=== PATIENT | female | born 1965 | race Caucasian/White ===

== ENCOUNTER 2025-03-09 15:59 | Emergency (ER) | payer MEDICARE, SELFPAY ==
[2025-03-09 16:03] VITALS: BP 142/88; PULSE 80; RESP 18; TEMP 36.9; O2SAT 97; BMI 25.9
--- OUTSIDE RECORDS SUMMARY | 2025-03-09 16:16 | XMS_ITS | Data Portability ---
Author Organization [facility] Address [address] [place] [address] Assessment No assessment recorded. Plan of Treatment Reminders Order Date Submit Date Provider Last Modified By Organization Details Last Modified Time Details Appointments None recorded. Lab lipid panel, serum 2022 023 [facility] (Laboratory), [address] [place], [address], 3 13:09:10 CMP, serum or plasma 2022 023 [email or web address] [facility] (Laboratory), [address] [place], [address], 3 12:00:51 CBC w/ auto diff 2022 023 [email or web address] 0 [facility] (Laboratory), [address] [place], [address], 3 12:00:15 TSH, serum or plasma 2022 023 [email or web address] 0 [facility] (Laboratory), [address] [place], [address], 3 11:59:53 vitamin D, 25-hydroxy, total, serum 2022 023 [email or web address] [facility] (Laboratory), [address] [place], [address], 3 08:19:32 lipid panel, serum 2022 023 [email or web address] [facility] (Laboratory), [address] [place], [address], 3 08:19:32 Referral gastroenter ology surgery referral - colonoscopy screening 2022 023 [email or web address] 0 Alex Thompson MD, [address], [place], [address], 3 09:54:09 Procedures None recorded. Surgeries None recorded. Imaging XR, finger(s) - right middle finger 2022 023 [email or web address] [facility] Centralized Scheduling, [address] [place], [address], 3 09:32:34 DEXA 2022 023 [facility] Centralized Scheduling, [address] [place], [address], 3 08:07:06 MAMMO, screening, bilateral 2022 023 COSTA [facility] Centralized Scheduling, [address] [place], [address], 3 09:47:32 Medication Orders None recorded. Patient TargetsNo targets recorded. Patient InstructionsNo instructions recorded. Reason for Referral Gastroenterology Surgery Ref erral for Adult health examination colonoscopy screening Referring Physician: Jay Daniel, Family Medicine, Encounter Date: 07/30/2022 Results Created Date Observation Date Name Description Value Unit Range Abnormal Flag Note LastModifiedBy Organization Detail LastModifiedTime 07/31/1907/30/2022 CBC AUTO W DIFF WBC 4.4 10 4.5-11 .5 low Not Available [facility] (Lab Registration) [address] [place], [address], 07/30/2022 17:09:51 07/31/19 23 07/30/2022 CBC AUTO W DIFF RBC 4.51 10 4.25-5 .57 Not Available [facility] (Lab Registration) [address] [place], [address], 07/30/2022 17:09:51 07/31/19 23 07/30/2022 CBC AUTO W DIFF HGB 13.3 g/dL 12.0-1 5.7 Not Available [facility] (Lab Registration) [address] [place], [address], 07/30/2022 17:09:51 07/31/19 23 07/30/2022 CBC AUTO W DIFF HCT 40.6 % 36.0-4 7.0 Not Available [facility] (Lab Registration) [address] [place], [address], 07/30/2022 17:09:51 07/31/19 23 07/30/2022 CBC AUTO W DIFF MCV 90.0 fL 80-95 Not Available [facility] (Lab Registration) [address] [place], [address], 07/30/2022 17:09:51 07/31/19 23 07/30/2022 CBC AUTO W DIFF MCH 29.5 pg 27.0-3 4.0 Not Available [facility] (Lab Registration) [address] [place], [address], 07/30/2022 17:09:51 07/31/19 23 07/30/2022 CBC AUTO W DIFF MCHC 32.8 g/dL 32.0-3 6.0 Not Available [facility] (Lab Registration) [address] [place], [address], 07/30/2022 17:09:51 07/31/19 23 07/30/2022 CBC AUTO W DIFF platelet count 295 10 150-45 0 Not Available [facility] (Lab Registration) [address] [place], [address], 07/30/2022 17:09:51 07/31/19 23 07/30/2022 CBC AUTO W DIFF RDW 12.3 % 12.3-1 5.1 Not Available [facility] (Lab Registration) [address] [place], [address], 07/30/2022 17:09:51 07/31/19 23 07/30/2022 CBC AUTO W DIFF MPV 11.3 fL 7.4-10 .4 high Not Available [facility] (Lab Registration) [address] [place], [address], 07/30/2022 17:09:51 07/31/19 23 07/30/2022 CBC AUTO W DIFF granulocyte% 54.1 % 40-75 Not Available [facility] (Lab Registration) [address] [place], [address], 07/30/2022 17:09:51 07/31/19 23 07/30/2022 CBC AUTO W DIFF lymphocyte% 34.5 % 15-57 Not Available [facility] (Lab Registration) [address] [place], [address], 07/30/2022 17:09:51 07/31/19 23 07/30/2022 CBC AUTO W DIFF monocyte% 9.5 % 4.0-12 .0 Not Available [facility] (Lab Registration) [address] [place], [address], 07/30/2022 17:09:51 07/31/19 23 07/30/2022 CBC AUTO W DIFF eosinophil% 1.4 % 0.0-4. 0 Not Available [facility] (Lab Registration) [address] [place], [address], 07/30/2022 17:09:51 07/31/19 23 07/30/2022 CBC AUTO W DIFF basophil% 0.5 % 0.0-1. 0 Not Available [facility] (Lab Registration) [address] [place], [address], 07/30/2022 17:09:51 07/31/19 23 07/30/2022 CBC AUTO W DIFF immature granulocytes % 0.0 % 0.0-0. 8 Not Available [facility] (Lab Registration) [address] [place], [address], 07/30/2022 17:09:51 07/31/19 23 07/30/2022 CBC AUTO W DIFF granulocyte# 2.39 10 Not Available [facility] (Lab Registration) [address] [place], [address], 07/30/2022 17:09:51 07/31/19 23 07/30/2022 CBC AUTO W DIFF lymphocyte# 1.52 10 Not Available [facility] (Lab Registration) [address] [place], [address], 07/30/2022 17:09:51 07/31/19 23 07/30/2022 CBC AUTO W DIFF monocyte# 0.42 10 Not Available [facility] (Lab Registration) [address] [place], [address], 07/30/2022 17:09:51 07/31/19 23 07/30/2022 CBC AUTO W DIFF eosinophil# 0.06 10 Not Available [facility] (Lab Registration) [address] [place], [address], 07/30/2022 17:09:51 07/31/19 23 07/30/2022 CBC AUTO W DIFF basophil# 0.02 10 Not Available [facility] (Lab Registration) [address] [place], [address], 07/30/2022 17:09:51 07/31/19 23 07/30/2022 CBC AUTO W DIFF immature granulocytes # 0.00 10 Not Available [facility] (Lab Registration) [address] [place], [address], 07/30/2022 17:09:51 07/31/19 23 07/30/2022 CBC AUTO W DIFF manual differential NO Not Available [facility] (Lab Registration) [address] [place], [address], 07/30/2022 17:09:51 07/31/19 23 07/30/2022 CBC AUTO W DIFF note Unles s other cuevas noted testi ng perfo rmed at: [facility] [address] [place] [address] [phone] Anand carlos MD CLIA: [id number] Not Available [facility] (Lab Registration) [address] [place], [address], 07/30/2022 17:09:51 07/31/19 23 07/30/2022 VITAM IN D TOTAL (D2+D 3) vitamin D25 (D2+D3) 20.2 NG/mL 30-100 low Not Available [facility] (Lab Registration) [address] [place], [address], 07/30/2022 17:34:32 07/31/19 23 07/30/2022 VITAM IN D TOTAL (D2+D 3) note Unles s other cuevas noted testi ng perfo rmed at: [facility] [address] [place] [address] [phone] Anand carlos MD CLIA: [id number] Not Available [facility] (Lab Registration) [address] [place], [address], 07/30/2022 17:34:32 07/31/19 23 07/30/2022 COMP METAB OLIC PANEL sodium 141 mmol/ L 136-14 5 Not Available [facility] (Lab Registration) [address] [place], [address], 07/30/2022 17:34:33 07/31/19 23 07/30/2022 COMP METAB OLIC PANEL potassium 4.2 mmol/ L 3.5-5. 1 Not Available [facility] (Lab Registration) [address] [place], [address], 07/30/2022 17:34:33 07/31/19 23 07/30/2022 COMP METAB OLIC PANEL chloride 104 mmol/ L 98-107 Not Available [facility] (Lab Registration) [address] [place], [address], 07/30/2022 17:34:33 07/31/19 23 07/30/2022 COMP METAB OLIC PANEL carbon dioxide 28 mmol/ L 21-32 Not Available [facility] (Lab Registration) [address] [place], [address], 07/30/2022 17:34:33 07/31/19 23 07/30/2022 COMP METAB OLIC PANEL anion gap 9.0 Not Available [facility] (Lab Registration) [address] [place], [address], 07/30/2022 17:34:33 07/31/19 23 07/30/2022 COMP METAB OLIC PANEL glucose 107 mg/dL 70-110 Not Available [facility] (Lab Registration) [address] [place], [address], 07/30/2022 17:34:33 07/31/19 23 07/30/2022 COMP METAB OLIC PANEL blood urea nitrogen 9 mg/dL 7-18 Not Available [facility] (Lab Registration) [address] [place], [address], 07/30/2022 17:34:33 07/31/19 23 07/30/2022 COMP METAB OLIC PANEL creatinine 0.8 mg/dL 0.6-1. 0 Not Available [facility] (Lab Registration) [address] [place], [address], 07/30/2022 17:34:33 07/31/19 23 07/30/2022 COMP METAB OLIC PANEL BUN/creatini ne ratio 11.3 ratio 9-21 Not Available [facility] (Lab Registration) [address] [place], [address], 07/30/2022 17:34:33 07/31/19 23 07/30/2022 COMP METAB OLIC PANEL estimated glom filtration rate 78 mL/mi n >60- Not Available [facility] (Lab Registration) [address] [place], [address], 07/30/2022 17:34:33 07/31/19 23 07/30/2022 COMP METAB OLIC PANEL total protein 7.9 g/dL 6.4-8. 2 Not Available [facility] (Lab Registration) [address] [place], [address], 07/30/2022 17:34:33 07/31/19 23 07/30/2022 COMP METAB OLIC PANEL albumin 4.4 g/dL 3.4-5. 0 Not Available [facility] (Lab Registration) [address] [place], [address], 07/30/2022 17:34:33 07/31/19 23 07/30/2022 COMP METAB OLIC PANEL calcium 9.3 mg/dL 8.5-10 .1 Not Available [facility] (Lab Registration) [address] [place], [address], 07/30/2022 17:34:33 07/31/19 23 07/30/2022 COMP METAB OLIC PANEL corrected calcium 9.0 mg/dL 8.5-10 .1 Not Available [facility] (Lab Registration) [address] [place], [address], 07/30/2022 17:34:33 07/31/19 23 07/30/2022 COMP METAB OLIC PANEL bilirubin total 0.3 mg/dL 0.4-1. 5 low Not Available [facility] (Lab Registration) [address] [place], [address], 07/30/2022 17:34:33 07/31/19 23 07/30/2022 COMP METAB OLIC PANEL AST (SGOT) 24 U/L 15-37 Not Available [facility] (Lab Registration) [address] [place], [address], 07/30/2022 17:34:33 07/31/19 23 07/30/2022 COMP METAB OLIC PANEL ALT (SGPT) 32 U/L 12-78 Not Available [facility] (Lab Registration) [address] [place], [address], 07/30/2022 17:34:33 07/31/19 23 07/30/2022 COMP METAB OLIC PANEL alk phosphatase 106 U/L 50-120 Not Available [facility] (Lab Registration) [address] [place], [address], 07/30/2022 17:34:33 07/31/19 23 07/30/2022 COMP METAB OLIC PANEL note Unles s other cuevas noted testi ng perfo rmed at: [facility] [address] [place] [address] [phone] Anand carlos MD CLIA: [id number] Not Available [facility] (Lab Registration) [address] [place], [address], 07/30/2022 17:34:33 07/31/19 23 07/30/2022 THYRO ID STIMU LATIN G HORMO NE thyroid stimulating hormone 1.54 mIU/m L 0.34-4 .80 Not Available [facility] (Lab Registration) [address] [place], [address], 07/30/2022 17:34:35 07/31/19 23 07/30/2022 THYRO ID STIMU LATIN G HORMO NE note Unles s other cuevas noted testi ng perfo rmed at: [facility] [address] [place] [address] [phone] Anand carlos MD CLIA: [id number] Not Available [facility] (Lab Registration) [address] [place], [address], 07/30/2022 17:34:35 10/27/19 23 10/26/2022 LIPID PANEL triglyceride 83 mg/dL 20-200 The Natio nal Evelyn stero l Educa tion Progr am (NCEP ) has set the follo wing guide lines for Fasti ng Trigl yceri curtis: STEVEN L: <150 mg/dL BORDE RLINE HIGH: 150 - 199 mg/dL HIGH: 200 - 499 mg/dL VERY HIGH: > or =500 mg/dL Not Available [facility] (Lab Registration) [address] [place], [address], 10/26/2022 13:09:09 10/27/1910/26/2022 LIPID PANEL cholesterol 271 mg/dL 0-200 high The Natio nal Evelyn stero l Educa tion Progr am (NCEP ) has set the follo wing guide lines for Fasti ng Evelyn stero l: KEANU ABLE: <200 mg/dL BORDE RLINE HIGH: 200 - 239 mg/dL HIGH: > or =240 mg/dL Not Available [facility] (Lab Registration) [address] [place], [address], 10/26/2022 13:09:09 10/27/1910/26/2022 LIPID PANEL HDL cholesterol 61 mg/dL 60- The Natio nal Evelyn stero l Educa tion Progr am (NCEP ) has set the follo wing guide lines for Fasti ng HDL Evelyn stero l: LOW HDL: <40 mg/dL STEVEN L: 40 - 60 mg/dL KEANU ABLE: >60 mg/dL Not Available [facility] (Lab Registration) [address] [place], [address], 10/26/2022 13:09:09 10/27/1910/26/2022 LIPID PANEL LDL calculated 193 mg/dL 100- The Natio nal Evelyn stero l Educa tion Progr am (NCEP ) has set the follo wing guide lines for Fasti ng LDL Evelyn stero l: OPTIM AL: < 100 mg/dL LOW RISK: 100 - 129 mg/dL BORDE RLINE HIGH: 130 - 159 mg/dL HIGH: 160 - 189 mg/dL VERY HIGH: > or = 190 mg/dL Not Available [facility] (Lab Registration) [address] [place], [address], 10/26/2022 13:09:09 10/27/19 23 10/26/2022 LIPID PANEL chol/HDL ratio 4 ratio -5 Not Available [facility] (Lab Registration) [address] [place], [address], 10/26/2022 13:09:09 10/27/19 23 10/26/2022 LIPID PANEL note Unles s other cuevas noted testi ng perfo rmed at: [facility] [address] [place] [address] [phone] Anand carlos MD CLIA: [id number] Not Available [facility] (Lab Registration) [address] [place], [address], 10/26/2022 13:09:09 07/31/19 23 07/30/2022 XR, finge r(s) [facility] [place] [address] Phone: Fax: Name: NIKHIL BLANCO Exam Date: 023 : 9[birth year] Age 57 Gender : F Access ion: [id number] Physic arlyn: JAY DANIEL Facili ty: [facility] Facili ty HSV: Outpat ient Exam: FINGER (S) 3 VIEWS RT Right finger s THREE VIEW HISTOR Y: Pain and swelli ng FINDIN GS: Three views show no eviden ce of an acute, displa jayesh fractu re or disloc ation of the visual ized bony karol ecture . There are mild degene rative change s. Probab le enthes ophyte over the dorsal aspect of the third DIP. Soft tissue swelli ng is noted. Consid er furthe r evalua tion with MRI. IMPRES DIEGO: Probab le enthes ophyte over the dorsal aspect of the third DIP. Soft tissue swelli ng is noted. Consid er furthe r evalua tion with MRI. Dictat ed By: ALEX YU Transc ribed By: ALEX YU Transc ribed On: 023 11:55 AM Electr onical ly signed by: ALEX YU Thank you for referr ing NIKHIL BLANCO to [facility]. Legall y authen ticate d by POPE ALEX Hutchinson DO 07-30 11:55: 55 CC'ed Logic: Orderi ng Provid er: ÁNGEL THOMPSON CC Provid er: ÁNGEL THOMPSON Attend ing Provid er: ÁNGEL THOMPSON Referr ing Provid er: ÁNGEL THOMPSON Admitt ing Provid er: ÁNGEL THOMPSON [address] (Radiology) [address] [place], [address], 09/28/2022 09:32:34 09/29/19 23 04/28/2017 MAMMO , diagn ostic , digit al, bilat eral, w/ CAD No observ ation record ed. [address] Centralized Scheduling [address] [place], [address], 09/28/2022 09:46:43 09/29/19 23 04/05/2017 MAMMO , scree calos, bilat eral No observ ation record ed. [address] Centralized Scheduling [address] [place], [address], 09/28/2022 09:47:39 Result Notes Documentation Provider Name and Address Organization Details Recorded Time Xr, Finger(s) : [place] [address] [place] [address] Name: FRANCIS RAYMOND Exam Date: 07/30/2022 : 1965 Age 57 Gender: F Physician: JAY DANIEL Facility: [facility] Facility HSV: Outpatient Exam: FINGER(S) 3 VIEWS RT Right fingers THREE VIEW HISTORY: Pain and swelling FINDINGS: Three views show no evidence of an acute, displaced fracture or dislocation of the visualized bony architecture. There are mild degenerative changes. Probable enthesophyte over the dorsal aspect of the third DIP. Soft tissue swelling is noted. Consider further evaluation with MRI. IMPRESSION: Probable enthesophyte over the dorsal aspect of the third DIP. Soft tissue swelling is noted. Consider further evaluation with MRI. Dictated By: ALEX YU Transcribed By: ALEX YU Transcribed On: 07/30/2022 11:55 AM Electronically signed by: ALEX YU 07/30/2022 Thank you for referring RAYMOND BLANCO to [facility]. Legally authenticated by POPE ALEX Hutchinson DO 2022-07-30 11:55:55 CC'ed Logic: Ordering Provider: ÁNGEL THOMPSON CC Provider: ÁNGEL THOMSPON Attending Provider: ÁNGEL THOMPSON Referring Provider: ÁNGEL THOMPSON Admitting Provider: ÁNGEL Rothmantle [facility], [place] - [facility] - [place] & [place] 09/28/2022 09:32:34 Problems Name Problem SNOMED Code Status Onset Date Resolution Date Notes Provider Name and Address Organization Details Recorded Time Vitamin D deficiency 61807258 Active 2022 Jay Daniel MD [address] [place] [address], [phone], [place] [facility] [place] 3 10:42:51 Screening for malignant neoplasm of colon Active 2022 Jay Daniel MD [address] [place] [address], [address], [place] [facility] [place] 3 10:42:54 Screening for malignant neoplasm of breast Active 2022 Jay Daniel MD [address] [place] [address], [address], [place] [facility] [place] 3 10:42:55 Hyperlipidemia screening Active 2022 Jay Daniel MD [address] [place] [address], [address], [place] [facility] [place] 3 10:42:58 Problem Notes None recorded. Procedures Surgical History Date Name Laterality Status Provider Name and Address Organization Details Recorded Time 3 Medicare Annual Wellness Visit Health Risk Assessment completed Ramo CASTILLO [facility] & [place] 08/10/2022 15:21:30 Imaging Results None recorded. Procedure Notes None recorded. Medical Equipment None Reported. Allergies Allergen ID Allergen Name Allergen Category Reaction Reaction Severity Criticality Documentation Date Start Date Code Code System Note Provider Name and Address Organization Details Recorded Time 11354 Product containin g penicilli n (product) medicatio n Not available Not available Not available 09/28/2022 49871 8001 SNOMED Junie JONATHAN Quevedo [facility] & [place] 3 09:37:04 Vitals Date Recorded Body height Body mass index (BMI) Body weight Body temperature Oxygen saturation Oxygen saturation in Arterial blood by Pulse oximetry Heart rate Respiratory rate Systolic And Diastolic Provider Name and Address Organization Details Last Updated DateTime 3 153.67 cm 27.5 kg/m2 06726.7 1 g 98.6 [degF] 98 % 98 % 80 /min 18 /min 120/88 mm[Hg] Ramo CASTILLO [facility] & [place] 3 10:25:40 Date Recorded Body height Body mass index (BMI) Body weight Body temperature Oxygen saturation Oxygen saturation in Arterial blood by Pulse oximetry Heart rate Systolic And Diastolic Provider Name and Address Organization Details Last Updated DateTime 3 153.67 cm 27.3 kg/m2 46136.1 2 g 98.1 [degF] 99 % 99 % 67 /min 123/78 mm[Hg] Ramo CASTILLO [facility] & [place] 3 10:31:19 Social History None recorded. Functional Status None recorded. Mental Status None recorded. Family History Nothing Reported. Medical History No medical history recorded. Gynecological HistoryNo gynecological history recorded. Obstetrics History GPAL:G 0 P 0 0 0 0 Past Encounters Encounter ID Performer Location Encounter Start Date Encounter Closed Date Diagnosis/Indication Diagnosis SNOMED-CT Code Diagnosis ICD10 Code Diagnosis IMO Codes Diagnosis Note [id number] Jay Daniel MD [facility] [address] [phone] 07/30/2022 09:54:32 07/30/2022 11:08:56 Adult health examination 154261847 Z00.00 Physical exam. Recommende d screenings including blood work colonoscop y mammogram and DEXA scan Mallet fin fuad of right hand 8018519414 32951 M20.011 Mallet finger deformity of the right middle finger. This trauma occurred 2 months ago. I explained to the patient that I did not know that the problem could be fixed. We will x-ray the finger. Explain the etiology of being a torn ligament. [id number] Jay Daniel MD [facility] [address] [id number] 10/26/2022 10:09:11 10/26/2022 17:24:32 Vitamin D deficiency 59580275 E55.9 patient on vitamin-D tolerating well. Recommend continuing this. Screening for malignant neoplasm of colon 013833904 Z12.11 Patient has decline screening colonoscop y and Cologuard at this time. She will consider and discuss at next visit Screening for malignant neoplasm of breast 004442197 Z12.39 patient does not know when her last mammogram was. According to records she had 1 in 2016. I strongly recommend she have another mammogram. She will consider and let me know if she wants to proceed. Hyperlipid emia screening 074817917 Z13.220 Check lipid panel today. Mallet fin fuad of right hand 9301925326 40920 M20.011 X-ray shows scarring of the joint. Offered to refer to hand surgery. She will consider. Health Concerns Section Related Observation LastModified by Organization Detai ls LastModified Time None Recorded Concern Status LastModified by Organization Details LastModified Time None Recorded Advance Directives Directive None Recorded Payers Insurance Date Sequence Insurance Name Policy Number Policy Lane Covered Member ID Lane Member ID Guarantor Name 03/08/2025 [place] - [facility] (MEDICARE) Raymond Blanco [id number] Raymond Blanco 03/08/2025 [place] [employer] [facility] Raymond Blanco [id number] 29 Raymond Blanco 03/08/2025 1 [place] Raymond Blanco [id number] 29 Raymond Blanco Notes Date Note Type Note Provider Name and Address Organization Details Recorded Time 07/30/2022 text/html 49-year-old female here to become established and physical. Patient has a new patient. She was last seen in 2019.Patient has minimal health issues. She did have some trauma to her right middle finger 2 months ago and still has some swelling with deformity of her D IP joint. She denies any severe pain at this time.Patient does not recall her last mammogram or Pap smear she states it has been at least 4-5 years ago. She is not had any recent blood work.Patient has no specific complaints.No history of surgeries or hospitalizations. Jay Daniel MD [address] [place] [address], [phone], [facility] & [place] 08/12/2022 15:03:07 10/26/2022 text/html ROS as noted in the HPI 57-year-old female here for recheck.Patient's blood work showed vitamin-D deficiency. She did not get lipid panel done unsure why. Also patient did not get mammogram or colonoscopy done. We discussed at length. I recommend strongly she proceed with these tests. I also offered Cologuard screening.Patient' s x-ray of her right finger shows scarring of the joint. Discussed options for referral to hand surgery.Patient has no new complaints today Jay Daniel MD [address] [place] [address], [phone], [facility] & [place] 10/26/2022 11:03:27 OBGyn Episode No OBEpisode recorded.
--- OUTSIDE RECORDS SUMMARY | 2025-03-09 16:16 | XMS_ITS ---
Author Organization Unknown ENCOUNTERS Encounter Performer Location Date Diagnosis Diagnosis Status Emergency [facility] [place] [address] [place] [address] [id number] Pre Admit [place] [address] [place] [address] [id number] *Note: Encounters from your own facility or health system may be excluded. Allergies, Adverse Reactions, Alerts Allergen Type Severity Identification Date Penicillins drug allergy 0 [id number] Medications Name Date Quantity Days Supplied GPI Number
--- OUTSIDE RECORDS SUMMARY | 2025-03-09 16:16 | XMS_ITS | Clinical Summary ---
Author Organization [facility] Address [address] [place] [address] Care Team Providers Care Statistical Developer Name Role Phone Kelly Oliveira LEVAR Primary Care Provider Allergies Active Allergy Reactions Criticality Noted Date Comments Penicillins Unknown - Low Severity 01/19/2019 Medications methylPREDNISol one (MEDROL) 4 MG dose packIndications :Left otitis media with effusion,Acute non-recurrent maxillary sinusitis Take as directed on package instructions. 21 tablet 04/06/2023 Active Active Problems No known active problems Immunizations Immunization Administration Dates Next Due Fluzone >6mos 01/12/2017 TD Preservative Free (Tenivac) 07/10/2018 Family History Medical History Relation Name Comments No Known Problems Father No Known Problems Maternal Grandfather No Known Problems Maternal Grandmother Hypertension Mother No Known Problems Paternal Grandfather No Known Problems Paternal Grandmother Relation Name Status Comments Father Alive Maternal Grandfather Maternal Grandmother Mother Alive Paternal Grandfather Paternal Grandmother Social History Tobacco Use Types Packs/Day Years Used Date Smoking Tobacco: Former Cigarettes 1 9 1 991 - 2000 Smokeless Tobacco: Never Tobacco Cessation:Counseling Given: Not Answered PHQ-2 Answer Date Recorded Retired PHQ-9: Brief Depression Severity Measure Score 6 04/06/2023 Abuse Screen Answer Date Recorded Unsafe at Home or Work/School Not on file Feels Threatened by Someone? Not on file Does Anyone Keep You from Co ntacting Others or Doint Things Outside the Home? Not on file 04/06/2023 Physical Sign of Abuse Present Not on file 1 06/06/2022 Housing Stability Answer Date Recorded Current Living Arrangements Not on file 03/17 Potentially Unsafe Housing Conditions Not on love e 04/06/2023 Family and Community Support Answer Cl e Recorded Help with Day-to-Day Activities Not on file 04/06/2023 Lonely or Isolated Not on file 04/06/2023 Employment Answer Date Recorded Do you want help finding or keeping work or a frankie b? Not on file 04/06/2023 Disabilities Answer Date Recorded Concentrating, Remembering, or Making Decisions Difficulty Not on file 04/06/2023 Doing Errands Independently Difficulty Not on fi le 04/06/2023 Education Answer Date Recorded Help with school or training? Not on file Preferred Language Not on file 04/06/2023 PHQ-2 Answer Date Recorded Retired PHQ-9: Brief Depression Severity Measure Score 6 04/06/2023 Comments Unknown Sex and Gender Information Value Date Recorded Sex Assigned at Not on file Legal Sex Female 8:18 AM EST Gender Identity Not on file Sexual Orientation Not on file Last Filed Vital Signs Vital Sign Reading Time Taken Comments Blood Pressure 108/70 04/06/2023 12:37 PM EST Pulse 84 04/06/2023 12:37 PM EST Temperature 36.5 C (97.7 F) 04/06/2023 12:37 PM EST Respiratory Rate 22 04/06/2023 12:37 PM EST Oxygen Saturation 97% 04/06/2023 12:37 PM EST Inhaled Oxygen Concentration - - Weight 62.1 kg (137 lb) 04/06/2023 12:37 PM EST Height 154.9 cm (5' 1 ) 04/06/2023 12:37 PM EST Body Mass Index 25.89 04/06/2023 12:37 PM EST Plan of Treatment Health Maintenance Due Date Last Done Comments Annual Gynecologic Pelvic an d Breast Exam 1964 PAP SMEAR 1985 COLOGUARD 2009 COLON CANCER SCREENING 5 YEA R SIGMOIDOSCOPY 2009 COLONOSCOPY 2009 [address] CANCER SCREENING 2009 CT COLONOGRAPHY 2009 FECAL OCCULT BLOOD TEST 2009 FIT Testing (1 year) 2009 Pneumococcal Vaccine 50+ (1 of 1 - PCV) 2014 ZOSTER VACCINE (1 of 2) 2014 MAMMOGRAM 04/28/2019 04/28/2017, 04/05/2017 HEPATITIS C SCREENING 04/06/2023 ANNUAL WELLNESS VISIT 07/31/2023 07/30/2022, 017 INFLUENZA VACCINE 12/14/2024 01/12/2017, , 01/12/2017 TDAP/TD VACCINES (2 - Tdap) 07/10/2028 07/10/2018 Insurance MEDICARE A & B Care Teams Statistical Developer Relationship Specialty Start Date End Date Kelly Oliveira APRN [address] [place] [address] PCP - General Nurse Practitioner 04/06/23
--- NOTE | 2025-03-09 17:18 | ED_ITS ---
Discharge Plan Disposition Patient Disposition: Home, Self-Care Condition: Good Prescriptions Prescriptions: New triamcinolone acetonide 0.1 % cream 1 applic topical TID Qty: 30 0RF hydroxyzine pamoate 25 mg capsule 25 mg PO TID PRN (Reason: itching) Qty: 14 0RF prednisone 10 mg tablet 10 mg PO DIRECTED Qty: 27 0RF Rx Instructions: Take 4 tabs x 3 days, 3 tabs x 3 days, 2 tabs x 2 days, 1 tab x 2 days Referrals Follow up/Referrals: Provider,Referral, MD [Primary Care Provider, Medical] - See instructions Activity Restrictions/Add. Instructions Additional Instructions/Restrictions: You were seen for a rash. Please take your steroids as prescribed. Follow up with your PCP this week. Return to ER for any worsening, fever, difficulty breathing, involvement of the mouth. Clinical Impressions Clinical Impression: Rash Instructions Patient Instructions: DI for Rash Print Language Print Language: Portuguese Discharge ED Provider: Linda Young Adult HPI General Chief complaint: Skin/Abscess/Foreign Body Stated complaint: rash is all over body Time Seen by Provider: 03/09/25 16:07 Mode of Arrival: Ambulatory Source of Information: Patient Description of Symptoms (Recalled from ER Triage Doc. by RN): patient presents to ED for an all over body rash that she noticed 2 weeks ago that is spreading and getting progressively worse. patient denies any new body creams/lotions, no new laundry detergents, no new medications or vaccinations in the alst 2 weeks. patient states itchiness comes and goes. History of Present Illness HPI narrative: Patient presents with a pruritic rash on her arms and legs, somewhat on her abdomen. She reports this has been ongoing for over 2 weeks. She has not had any [id number] medication. Denies any fevers or vomiting. complaint: rash Onset (ago): week(s) (2) Location: upper extremity and lower extremity Severity: moderate Consistency: constant Relieving factors: none Exacerbating factors: none Associated symptoms: denies other symptoms Treatments prior to arrival: none Related Data Previous Rx's ?Medication ?Instructions ?Recorded hydroxyzine pamoate 25 mg capsule 25 mg PO TID PRN itc carmen #14 caps 03/09/25 prednisone 10 mg tablet 10 mg PO DIRECTED #27 tab s 03/09/25 triamcinolone acetonide 0.1 % 1 applic topical TID #30 grams 03/09/25 topical cream Allergies Allergy/AdvReac Type Severity Reaction Status Date / Time Penicillins Allergy Verified 01/19/19 18:01 [facility] Disclaimer: The information contained in this section may have been updated after the patient was seen, as this information can be updated by other users. Social History Smoking Status: Never smoker alcohol intake: never current occupational status: other Travel in the last 8 weeks?: None Have you lived/traveled outside [place] in past 30 days?: No Contact w/someone who lives/traveled outside [place] past 30 days?: No Exposure to someone with infectious disease in past 14 days?: No Do you have a fever (greater than 100.4 F or 38 C)?: No Have you tested positive for COVID-19?: No Exposed to someone with COVID-19 in past 14 days?: No Do you have a sore throat?: No Do you have a cough?: No Do you have any weakness?: No Do you have any diarrhea?: No Are you experiencing any unusual bleeding?: No Do you have any muscle aches/pain?: No Do you have any abdominal pain?: No Are you experiencing loss of taste or smell?: No ROS Obtained: Yes Systems reviewed as appropriate & no additional complaints except as documented Physical Exam General General appearance: alert and in no apparent distress Head Head exam: atraumatic and normocephalic Eye Eye exam: Present normal appearance and EOMI Chest Chest inspection: Present symmetric chest wall rise Respiratory Respiratory exam: Present normal lung sounds bilaterally; Absent wheezes or stridor Cardiovascular Cardiovascular exam: Present regular rate and normal rhythm; Absent systolic murmur Extremities Exam Extremities exam: Present full ROM Neurological Exam Neurological exam: Present alert and oriented X3 Psychiatric Psychiatric exam: Present normal affect and normal mood Skin Skin exam: Present warm, dry and other (Scattered patches of papulovesicular rash with slightly erythematous base to b/l upper extremities. She has some scaly, erythematous plaques to the b/l elbows and ears, ongoing and c/w psoriasis. Scattered excoriated papules to the b/l thighs. ) Medical Decision Making Medical Records Screening: Per USPSTF and CDC recommendations, given the prevalence of disease in our region, it is our hospital?s policy to screen for HIV and viral Hepatitis for all patients aged 18 and over and those with ongoing risk factors. [place] Inquiry Pt receiving controlled substance: No Vital Signs: 03/09/25 16:03 Temperature 98.5 F Temperature Source Oral Pulse Rate [Right Radial] 80 Respiratory Rate 18 Blood Pressure [Right Arm] 142/88 H Blood Pressure Mean [Right Arm] 106 Blood Pressure Source [Right Arm] Automatic Cuff Blood Pressure Position [Right Arm] Sitting 02 Sat by Pulse Oximetry 97 Oxygen Delivery Method Room Air Medical Decision Narrative: In summary patient is a 59-year-old female who presents the emergency department for evaluation of rash. Patient is hemodynamically stable upon arrival, afebrile. Rash to the bilateral upper and lower extremities. Differential diagnosis includes contact dermatitis, viral rash, scabies. Rash is most consistent with contact dermatitis. Given a steroid taper, triamcinolone cream as well as Vistaril for itching. She does have a few areas consistent with psoriasis. Given this patient is appropriate for discharge home at this time with instructions to follow-up with her PCP.. Critical Care Critical Care Time Critical Care Time: No
[2025-03-09 17:19] VITALS: BP 142/88; PULSE 87; RESP 16; TEMP 36.7; O2SAT 100
== END 2025-03-09 17:26 | disposition home or self-care (01) ==
PROVIDERS: Emergency Provider Student in an Organized Health Care Education/Training Program
DX: L25.9 Unspecified contact dermatitis, unspecified cause (principal)
CPT/HCPCS: 99283